=== PATIENT | male | born 1945 | race Caucasian/White ===

== ENCOUNTER 2024-07-22 19:03 | Emergency (ER) | payer MEDICARE ==
[~2024-07-22] VITALS: Ht 185.4 cm; Wt 81.6 kg
--- NOTE | 2024-07-22 19:24 | ERN ---
ED Note History of Present Illness Stated Complaint: RIGHT LEG LACERATION Time Seen by MD: 19:14 Dictation: PATIENT IS A 78-YEAR-OLD MALE HERE WITH A SKIN TEAR LACERATION TO THE RIGHT ANTERIOR TIBIAL AREA ONSET1 HOUR PRIOR TO ARRIVAL. HE STATES IT WAS WORKING IN HIS YD WHEN HE RAN INTO A METAL POST THE DOG INTO HIS LEG. BLEEDING IS VERY SCANT HOWEVER PATIENT STATES THAT HIS TETANUS SHOT IS NOT UP-TO-DATE. IN ADDITION HE STATES HE IS NOT A DIABETIC. FINALLY, STATES HE HAD SURGERY TO THAT WITH A GREGORY TO THE TIBIA YEARS AGO. Past Medical History RN Note Reviewed/Agreed w/PFSH: Yes Review of System Dictation CONSTITUTIONAL: NEGATIVE EXCEPT FOR HPI HEAD/FACE: NEGATIVE EXCEPT FOR HPI EENT: NEGATIVE EXCEPT FOR HPI RESPIRATORY: NEGATIVE EXCEPT FOR HPI GASTROINTESTINAL/ABDOMINAL: NEGATIVE EXCEPT FOR HPI GENITOURINARY: NEGATIVE EXCEPT FOR HPI MUSCULOSKELETAL: NEGATIVE EXCEPT FOR HPI INTEGUMENTARY: NEGATIVE EXCEPT FOR HPI SKIN TEAR/LACERATION TO DISTAL RIGHT LEG NEUROLOGICAL/PSYCH: NEGATIVE EXCEPT FOR HPI HEMATOLOGIC/LYMPHATIC: NEGATIVE EXCEPT FOR HPI ALL SYSTEMS NEGATIVE, EXCEPT NOTED ABOVE. 13 POINT REVIEW OF SYSTEMS ASSESSED AND ALL NEGATIVE EXCEPT FOR ABOVE. Initial Vital Sign VS Vital Signs Date Time Temp Pulse Resp B/P (MAP) Pulse Ox O2 Delivery O2 Flow Rate FiO2 07/22/24 19:43 98.1 70 18 114/61 97 07/22/24 20:46 Room Air* 0 21 Physical Exam Dictation VITAL SIGNS REVIEWED GENERAL APPEARANCE: ALERT, ORIENTED X 3, MILD ACUTE DISTRESS, WELL DEVELOPED, NOURISHED. HEAD AND FACE: NON-TRAUMATIC. EYES: PERRL, PINK CONJUNCTIVAS, EYELID NO TRAUMA, ANTERIOR CHAMBER WITH ARCUS SENILIS. EARS: PINNAS INTACT AND NO SIGNS OF TRAUMA OR ERYTHEMA EAR CANALS CLEAR AND NO DISCHARGE TM NO ERYTHEMA NOSE: NO DISCHARGE, NO BLEEDING. OROPHARYNX: MOUTH NORMAL, TONGUE PINK, PHARYNX CLEAR,NO ERYTHEMA, TONSILS NO EXUDATES, NO ABSCESSES NOTED, MUCOUS MEMBRANE MOIST NECK: SUPPLE, NON-TENDER, NO THYROMEGALY, NO MASSES, NO JVD, NO BRUITS BREAST:DEFERRED CHEST:NO TENDERNESS, NO CREPITUS, NO PARADOXICAL MOVEMENT, NO RETRACTIONS LUNGS:CLEAR, WELL-VENTILATED, SYMMETRIC, NO RALES, NO WHEEZING, NO RHONCHI, NO STRIDOR, GOOD BREATH SOUNDS BILATERALLY HEART: REGULAR RATE, REGULAR RHYTHM, NO MURMUR, NO GALLOPS VASCULAR: NO PERIPHERAL EDEMA, ABDOMEN: SOFT, POSITIVE BOWEL SOUNDS, NONDISTENDED, NO GUARDING, NONTENDER, NO REBOUND, NO MASSES NO HEPATOMEGALY, NO SPLENOMEGALY, NO ELIZALDE'S SIGN, NO HERNIAS. RECTAL: DEFERRED GENITAL: DEFERRED NEUROLOGICAL: NORMAL SPEECH, MOTOR FUNCTION INTACT, SENSORY FUNCTION INTACT MUSCULOSKELETAL: NECK NONTENDER, FULL RANGE OF MOTION, BACK NONTENDER, FULL RANGE OF MOTION, EXTREMITIES: NONTENDER, FULL RANGE OF MOTION SKIN: COLOR PINK, IRREGULAR SKIN TEAR/LACERATION TO RIGHT DISTAL LEG ANTERIORLY. MINIMAL BLEEDING. LYMPHATIC: DEFERRED Results (Laboratory/Radiology) Laboratory/Radiology 2139 RIGHT TIB X-RAY NEGATIVE PRIOR INTRAMEDULLARY RODDING NOTED INTACT Labs Reviewed?: Yes ED Course ED Course Orders Procedure Category Date Status Time Neomy PHA 07/22/24 Complete Sulf/Bacitra/Polymyxin 19:30 Tetanus,Diphtheria PHA 07/22/24 Complete Tox [Adult] (Diphther 19:30 Clindamycin 150mg Cap PHA 07/22/24 Complete (Cleocin 150mg Cap 19:30 Lidocaine Hcl 1% 20ml PHA 07/22/24 In Process Vial (Lidocaine Hc 19:30 Acetaminophen With PHA 07/22/24 Complete Codeine (Tylenol-Code 19:30 Tibia/Fibula 2vws Rt RAD 07/22/24 Taken 19:18 Current Medications Medications (Trade) Dose Ordered Sig/Agueda Route PRN Reason Start Time Stop Time Status Last Admin Dose Admin Acetaminophen/ Codeine Phosphate (TYLenol-coDEINE TAB) 2 tab ONCE ONCE PO 07/22/24 19:30 07/22/24 19:31 DC 07/22/24 20:43 Clindamycin HCl (Cleocin 150mg Cap) 600 mg ONCE ONCE PO 07/22/24 19:30 07/22/24 19:31 DC 07/22/24 20:44 Lidocaine HCl (Lidocaine HCl 1% 20ml Vial) 10 ML TO BEDSIDE FOR REP... ONCE INJ 07/22/24 19:30 08/21/24 19:29 07/22/24 20:43 Neomycin/ Polymyxin/ Bacitracin (Triple Antibiotic Ointment) 1 appl ONCE ONCE TP 07/22/24 19:30 07/22/24 19:31 DC 07/22/24 20:43 Tetanus/ Diphtheria Toxoids Adsorbed (DiphthERIA-teTANUS TOXOID [ADULT]/ DECAVAC) 0.5 ml ONCE ONCE IM 07/22/24 19:30 07/22/24 19:31 DC 07/22/24 20:45 Vital Signs Date Time Temp Pulse Resp B/P (MAP) Pulse Ox O2 Delivery O2 Flow Rate FiO2 07/22/24 20:46 98.4 86 18 145/65 99 Room Air* 0 21 07/22/24 19:43 98.1 70 18 114/61 97 Medical Decision Making MDM MEDICAL DISCHARGE MAKING BASED ON X-RAY OF DISTAL RIGHT LEG TO RULE OUT FRACTURE TETANUS WAS UPDATED PATIENT LOADED WITH CLINDAMYCIN 600 MG P.O. LACERATION CLOSED PATIENT GIVEN WOUND CARE INSTRUCTIONS STRICT NO SWIMMING, NO HOT TUBS OR GOING TO THE OCEAN UNTIL CLEARED BY THE PRIMARY CARE DOCTOR. Procedure Procedure Dictation: [id number] PROCEDURE EXPLAINED TO PATIENT HE AGREED TO PROCEED PATIENT HAD 11.5 CM STELLATE LACERATION TO THE DISTAL RIGHT LEG VERY DIFFICULT TO APPROXIMATE DUE TO THE INJURY AND SHAPE OF SKIN TEAR/LACERATION 10 ML 1% LIDOCAINE PLAIN USED FOR LOCAL ANESTHETIC WOUND WAS CLEANSED THOROUGHLY WITH WOUND CLEANSER LACERATION WAS CLOSED WITH ONE RUNNING 3-0 PROLENE 10 3-0 PROLENE SIMPLE INTERRUPTED SUTURES THERE WAS A SMALL SKIN AVULSION THAT WAS NOT REPAIRABLE THIS WILL HEAL BY SECONDARY INTENTION WHOM WAS SHOWN TO THE AND PATIENT. BOTH WERE MADE AWARE HIGH-RISK OF SCAR FORMATION DUE TO THE NATURE OF THE INJURY PATIENT TOLERATED WELL NO ACTIVE BLEED DX & DISP Disposition: Discharge Departure Impression: Primary Impression: Laceration of right lower leg with complication Condition: Stable Scripts Mupirocin (Bactroban 2% Oint) 2 % Oint 1 APPL TP TID for 5 Days, #15 GM 0 Refills APPLY SMALL AMOUNT TO LACERATION REPAIR 3 TIMES A DAY FOR FIVE DAYS WITH NONADHESIVE DRESSING Prov: SANTANA PEOPLES NP 07/22/24 Clindamycin HCl (Clindamycin HCl) 300 Mg Capsule 1 CAP PO QID for 7 Days, #28 CAP 0 Refills Prov: SANTANA PEOPLES NP 07/22/24 Acetaminophen with Codeine (Acetaminophen-Cod #3 Tablet) 300 Mg-30 Mg Tablet 1 TAB PO Q4H PRN for MODERATE TO SEVERE PAIN, #15 TAB 0 Refills Prov: SANTANA PEOPLES NP 07/22/24 Additional Instructions: Follow-up with primary care provider in 1 to 2 days. Take medications as directed here in the emergency room. Okay to continue home medications unless otherwise discussed during your visit in the emergency room today. Return to your nearest emergency room if symptoms worsen or if there is no improvement. Call 911 if you need immediate assistance. Take Tylenol or Motrin [id number] as needed and if no contraindications are present. Increase oral hydration. A wound culture or urine culture was ordered here in the emergency room department please follow-up with primary care provider and advise them to get repeat ports from our facility. If you had any Rudy wrap/splints that were applied here, please do not remove them until you see your primary care or specialty. Keep laceration repair clean and dry. Apply Bactroban ointment3 times a day for five days with nonadhesive dressing. Take antibiotics as directed until gone. Take Tylenol with codeine for severe pain No swimming, no hot tubs, no ocean waiting until cleared by your doctor. Sutures out in 14 days. Referrals: KAILEE OROZCO MD (PCP) Time of Disposition: 21:47 I have reviewed the case, and I agree with, Diagnosis and Plan SANTANA PEOPLES NP Jul 22, 2024 19:24
[2024-07-22] MEDS: NEOMY SULF/BACITRA/POLYMYXIN B 1 EACH PACKET TP ONE (20:43)
[2024-07-22] MEDS: LIDOCAINE HCL 1% 20 ML VIAL INJ SCH (20:43)
[2024-07-22] MEDS: acetaMINOPHEN WITH coDEINE 1 TAB TAB PO ONE (20:43)
[2024-07-22] MEDS: CLINDAMYCIN 150 MG CAP PO ONE (20:44)
[2024-07-22] MEDS: teTANUS/diphthERIA TOXOID [ADULT] 0.5 ML VIAL IM ONE (20:45)
[2024-07-22 20:46] VITALS: BP 145/65; PULSE 86; RESP 18; TEMP 98.5; O2SAT 99
[2024-07-22] MEDS ORDERED: ACET-2079 PO (21:49)
[2024-07-22] MEDS ORDERED: MUPI22O TP (21:49)
[2024-07-22] MEDS ORDERED: CLIN-141 PO (21:49)
--- NOTE | 2024-07-23 13:22 | HMCIMG ---
TIBIA/FIBULA 2VWS RT HISTORY: Laceration COMPARISON: None TECHNIQUE: 4 images of right tibia and fibula were obtained. FINDINGS: Postop changes are seen with intramedullary genevieve through the tibia. Healing fractures are seen in the tibia and fibula. There is no acute displaced fracture or dislocation. Degenerative changes are seen. IMPRESSION: 1. Findings as described above.
== END 2024-07-22 22:12 | disposition home or self-care (01) ==
LOC: EDH 19:03
DX: S81.811A Laceration without foreign body, right lower leg, initial encounter (principal); W22.8XXA Striking against or struck by other objects, initial encounter; Y93.89 Activity, other specified; Y92.096 Garden or yard of other non-institutional residence as the place of occurrence of the external cause; Y99.8 Other external cause status
CPT/HCPCS: 12004; 73590; 90471; 90714; 99283; 99284